=== PATIENT | female | born 1955 | race American Indian/Alaskan Native ===

== ENCOUNTER 2017-05-01 19:35 | Emergency (ER) | payer OTHER ==
[2017-05-01 20:08] VITALS: RESP 17; TEMP 98.2
--- NOTE | 2017-05-01 20:18 | ED PDOC ---
Arrival/HPI - General Chief Complaint: Female Genitourinary Time Seen by Provider: 05/01/17 20:07 - History of Present Illness Narrative History of Present Illness (Text): 61F c/o low abd pain for the last 8-9 days, worse for 2 days. worse when urinating, now rad to back. tramadol helps (normally take for chronic pain). no n/v/d or fever. hx of abdominal surgery back in 1983 but she does not know for what. Past Medical History - Reproductive Menopause: Yes - Cardiac Hx Cardiac Disorders: Yes Hx Hypertension: Yes - Pulmonary Hx Respiratory Disorders: No - Neurological Hx Neurological Disorder: No - HEENT Hx HEENT Disorder: No - Renal Hx Renal Disorder: No - Endocrine/Metabolic Hx Endocrine Disorders: No - Hematological/Oncological Hx Blood Disorders: No - Integumentary Hx Dermatological Disorder: No - Musculoskeletal/Rheumatological Hx Musculoskeletal Disorders: Yes Hx Arthritis: Yes - Gastrointestinal Hx Gastrointestinal Disorders: No - Genitourinary/Gynecological Hx Genitourinary Disorders: No - Psychiatric Hx Psychophysiologic Disorder: Yes Hx Anxiety: Yes Hx Depression: Yes Hx Substance Use: No - Surgical History Other/Comment: PT HAD EITHER LAPAROSCOPY OR HYSTEROSCOPY DOES NOT KNOW WHAT SURGERY SHE HAD - Anesthesia Hx Anesthesia: Yes Hx Anesthesia Reactions: No Hx Malignant Hyperthermia: No Family/Social History Family/Social History: Other (nc) Smoking Status: Never Smoked Hx Alcohol Use: No Hx Substance Use: No Allergies/Home Meds Allergies/Adverse Reactions: Allergies No Known Allergies Allergy (Verified 06/23/14 12:29) Home Medications: Home Meds Medication Instructions Recorded Confirmed Gabapentin 100 mg PO BID 06/23/14 06/23/14 Hydrochlorothiazide/Losartan 1 tab PO DAILY 06/23/14 06/23/14 [Losartan Potassium-Hydrochlorothiazide 12.5 M] Naproxen [Naprosyn] 500 mg PO BID 06/23/14 06/23/14 Omeprazole [PrilOSEC] 40 mg PO DAILY 06/23/14 06/23/14 Pravastatin Sodium 40 mg PO HS 06/23/14 06/23/14 Tramadol Hydrochloride [Tramadol 50 mg PO BID 06/23/14 06/23/14 HCl] Review of Systems - Physician Review All systems were reviewed & negative as marked: Yes - Review of Systems Constitutional: absent: Fatigue, Weight Change, Fevers Respiratory: absent: SOB, Cough Cardiovascular: absent: Chest Pain Gastrointestinal: Abdominal Pain. absent: Constipation, Diarrhea, Nausea, Vomiting, Hematochezia, Food Intolerance Genitourinary Female: absent: Dysuria (no burning but abd pain worse when urinating), Frequency, Vaginal Bleeding Physical Exam Vital Signs Temp Pulse Resp BP Pulse Ox 05/01/17 20:05 98.2 F 62 17 142/75 95 Appearance: Positive for: Well-Appearing, Non-Toxic, Comfortable - Systems Exam Head: Present: Atraumatic Pupils: Present: PERRL Mouth: Present: Moist Mucous Membranes Neck: Present: Normal Range of Motion Respiratory/Chest: Present: Clear to Auscultation. No: Accessory Muscle Use Cardiovascular: Present: Regular Rate and Rhythm Abdomen: Present: Tenderness (mainly low non-focal). No: Distention, Peritoneal Signs, Rebound, Guarding Upper Extremity: Present: NORMAL PULSES Lower Extremity: No: Edema Neurological: Present: GCS=15, Motor Func Grossly Intact, Normal Sensory Function Skin: Present: Warm, Dry Psychiatric: Present: Alert, Oriented x 3 Medical Decision Making ED Course and Treatment: 05/01/17 22:43 pt resting comfortably, no distress, vss, no signs of sepsis. disc plan for abx , f/u, rtr. - Lab Interpretations Lab Results: 05/01/17 20:35 05/01/17 20:35 Lab Results 05/01/17 20:45: Urine Color Yellow, Urine Appearance Sl cloudy, Urine pH 6.0, Ur Specific [place] 1.010, Urine Protein Trace H, Urine Glucose (UA) Negative, Urine Ketones Negative, Urine Blood Moderate H, Urine Nitrate Negative, Urine Bilirubin Negative, Urine Urobilinogen 0.2, Ur Leukocyte Esterase Large H, Urine RBC 10 - 15, Urine WBC Tntc, Ur Epithelial Cells 6 - 8, Urine Bacteria Mod 05/01/17 20:35: Sodium 138, Potassium 4.0, Chloride 97 L, Carbon Dioxide 33, Anion Gap 12, BUN 19, Creatinine 0.9, Est GFR ( Amer) > 60, Est GFR (Non- Af Amer) > 60, Random Glucose 102, Calcium 9.0, Total Bilirubin 1.2, AST 28, ALT 37, Alkaline Phosphatase 76, Total Protein 7.9, Albumin 4.4, Globulin 3.5, Albumin/Globulin Ratio 1.3, Lipase 271 05/01/17 20:35: WBC 7.6, RBC 4.01, Hgb 13.2, Hct 38.1, MCV 95.0, MCH 32.9, MCHC 34.6, RDW 13.1, Plt Count 291, MPV 9.9, Gran % 46.0 L, Lymph % (Auto) 44.8 H, [place] % (Auto) 7.4 H, Eos % (Auto) 1.7, Baso % (Auto) 0.1, Gran # 3.48, Lymph # 3.4, [place] # 0.6, Eos # 0.1, Baso # 0.01 - RAD Interpretation Radiology Orders: 05/01/17 20:14 ABD PELVIS PO & IV CONTRAST [CT] Stat - Medication Orders Current Medication Orders: Discontinued Medications Ceftriaxone Sodium (Rocephin 1 Gram Ivpb) 1 gm in 100 mls @ 200 mls/hr IVPB STAT STA PRN Reason: Protocol Stop: 05/01/17 22:19 Iohexol (Omnipaque 240 (50 Ml)) Confirm Administered Dose 50 ml .ROUTE .STK-MED ONE Stop: 05/01/17 20:20 Last Admin: 05/01/17 21:33 Dose: Iohexol (Omnipaque 350 100 Ml) Confirm Administered Dose 350 mg .ROUTE .STK-MED ONE Stop: 05/01/17 21:20 Ketorolac Tromethamine (Toradol) 10 mg IVP STAT STA Stop: 05/01/17 20:15 Last Admin: 05/01/17 20:37 Dose: 10 mg Disposition/Present on Arrival - Present on Arrival Any Indicators Present on Arrival: No History of DVT/PE: No History of Uncontrolled Diabetes: No Urinary Catheter: No History of Decub. Ulcer: No History Surgical Site Infection Following: None - Disposition Have Diagnosis and Disposition been Completed?: Yes Diagnosis: UTI (urinary tract infection) Disposition: HOME/ ROUTINE Disposition Time: 22:43 Condition: STABLE
[2017-05-01] MEDS ORDERED: Iohexol 240 (50 ml) ONE (20:19)
[2017-05-01 20:43] LABS: ADD MANUAL DIFF? NO
[2017-05-01 20:47] LABS: BASO # 0.01 K/mm3 (0.0-2.0); BASO % 0.1 % (0.0-3.0); EOS # 0.1 (0.0-0.7); EOS % 1.7 % (1.5-5.0); GRAN # 3.48 (1.4-6.5); HEMATOCRIT 38.1 % (36.0-48.0); LYMPH # 3.4 (1.2-3.4); LYMPH % 44.8 % (22.0-35.0); MEAN CORPUSCULAR HEMOGLOBIN 32.9 pg (25.0-35.0); MEAN CORPUSCULAR HGB CONC 34.6 g/dl (31.0-37.0); MEAN PLATELET VOLUME 9.9 fl (7.0-11.0); MONO # 0.6 (0.1-0.6); MONO % 7.4 % (1.0-6.0); PLATELET COUNT 291 10^3/uL (120.0-450.0); RED CELL DISTRIBUTION WIDTH 13.1 % (11.5-14.5); WHITE BLOOD COUNT 7.6 10^3/ul (4.5-11.0)
[2017-05-01 20:59] LABS: ALB/GLOB RATIO 1.3 (1.1-1.8); ALKALINE PHOSPHATASE 76 U/L (38-133); ALT/SGPT 37 U/L (7-56); AST/SGOT 28 U/L (15-39); BILIRUBIN,TOTAL 1.2 mg/dL (0.2-1.3); BLOOD UREA NITROGEN 19 mg/dL (7-21); CARBON DIOXIDE 33 mmol/L (21-33); CHLORIDE 97 mmol/L (98-107); GFR AFRICAN-AMERICAN > 60; GLUCOSE,RANDOM 102 mg/dL (70-110); LIPASE 271 U/L (23-300); SODIUM 138 mmol/L (132-148); TOTAL PROTEIN 7.9 g/dL (5.8-8.3)
[2017-05-01 21:11] LABS: URINE BILIRUBIN NEGATIVE (NEGATIVE); URINE BLOOD MODERATE (NEGATIVE); URINE GLUCOSE (UA) NEGATIVE (NEGATIVE); URINE KETONE NEGATIVE (NEGATIVE); URINE LEUKOCYTE ESTERASE LARGE Leu/uL (NEGATIVE); URINE PROTEIN TRACE mg/dL (<30 mg/dL); URINE UROBILINOGEN 0.2 E.U./dL (<1 E.U./dL)
[2017-05-01 21:14] LABS: URINE APPEARANCE SL CLOUDY (CLEAR); URINE COLOR YELLOW (YELLOW)
[2017-05-01] MEDS ORDERED: Iohexol 350 MG/100 ML VIAL ONE (21:19)
[2017-05-01 21:25] LABS: URINE WBC TNTC /hpf (0-6)
[2017-05-01 21:26] LABS: URINE BACTERIA MOD (NEG)
[2017-05-01] MEDS ORDERED: cefTRIAXone 1 gm 1 GM/100 ML BAG IVPB STA (21:50)
--- NOTE | 2017-05-01 22:42 | CT ---
EXAM: CT Abdomen and Pelvis With Intravenous Contrast CLINICAL HISTORY: 61 years old, female; Pain; Abdominal pain; Localized; Lower; Additional info: Low abd pain TECHNIQUE: Axial computed tomography images of the abdomen and pelvis with intravenous contrast. This CT exam was performed using one or more of the following dose reduction techniques: automated exposure control, adjustment of the mA and/or kV according to patient size, and/or use of iterative reconstruction technique. Coronal and sagittal reformatted images were created and reviewed. CONTRAST: 100 mL of OMNI administered intravenously. EXAM DATE/TIME: 05/01/2017 8:14 PM COMPARISON: There are no prior studies for comparison. FINDINGS: Lower thorax: Heart size is normal. There is dependent atelectasis at the lung bases. There is a small hiatal hernia. ABDOMEN: Liver: unremarkable Gallbladder and bile ducts: unremarkable Pancreas: unremarkable Spleen: unremarkable Adrenals: unremarkable Kidneys and ureters: Kidneys are unremarkable. There is mild right renal pelvic and proximal ureteral callosal thickening and enhancement. There is only mild left renal pelvic and ureteral mucosal thickening and enhancement.There is no pelvocaliectasis or ureterectasis. Stomach and bowel: Stomach is partially distended. Rotation is normal. There is no obstruction. Terminal ileum is unremarkable. Appendix is unremarkable.Colon is incompletely distended which limits evaluation. Appendix: See above. PELVIS: Bladder: Bladder is distended. Reproductive: Uterus and adnexal structures are unremarkable. ABDOMEN and PELVIS: Intraperitoneal space: There is no free air.There is no free fluid. Bones/joints: There are degenerative changes in the osseus structures. Soft tissues: There is a small umbilical hernia. Vasculature: There are vascular calcifications. Lymph nodes: There is no pathologic adenopathy. IMPRESSION: Renal pelvic and proximal ureteral mucosal thickening and enhancement suggest urinary tract infection; no acute solid visceral abnormality; no CT findings of appendicitis or diverticulitis Additional findings as described above.
[2017-05-02 00:20] VITALS: BP 150/65; PULSE 67; O2SAT 99
--- NOTE | 2017-05-02 15:42 | CARD ---
APPROVED REPORT EKG Measurement Heart [id number] VT [id number] <Conclusion> Normal sinus rhythm Normal ECG
== END 2017-05-02 00:10 | disposition home or self-care (01) ==
LOC: ED 19:35
DX: N39.0 Urinary tract infection, site not specified (principal); I10 Essential (primary) hypertension
CPT/HCPCS: 74177; 80053; 81001; 83690; 85025; 87086; 93005; 96365; 96374; 99283; J0696; J1885; Q9966; Q9967